=== PATIENT | male | born 1960 | race Caucasian/White ===

== ENCOUNTER 2018-03-27 11:00 | Emergency (ER) | payer BC, OTHER ==
[~2018-03-27] VITALS: Ht 162.6 cm; Wt 65.8 kg
[2018-03-27 11:13] VITALS: Ht 162.6 cm; Wt 65.8 kg
[2018-03-27 12:31] LABS: BASOPHIL % 0.3 % (0-2); PLATELET COUNT 271 x10^3mcL (130-400); RED CELL DISTRIBUTION WIDTH 12.9 % (11.5-14.5)
[2018-03-27 12:43] LABS: CALCIUM 9.1 mg/dL (8.5-10.1); CARBON DIOXIDE 29.5 mmol/L (21-32); CHLORIDE SERUM 102 mmol/L (98-107); CREATININE SERUM 0.9 mg/dL (0.7-1.3); GFR1 > 60 mL/min; GLUCOSE SERUM 260 mg/dL (74-106); POTASSIUM SERUM 4.4 mmol/L (3.5-5.1); SODIUM SERUM 139 mmol/L (136-145)
[2018-03-27 12:56] LABS: ALKALINE PHOSPHATASE 130 U/L (46-116); ALT/SGPT 54 U/L (16-63); AMYLASE 90 U/L (25-115); AST/SGOT 18 U/L (15-37); BILIRUBIN TOTAL 0.29 mg/dL (0.20-1.00); CHOLESTEROL 162 mg/dL (<200); HDL CHOLESTEROL 51 mg/dL (40-60); LIPASE 349 IU/L (73-393); TOTAL PROTEIN, SERUM 8.3 g/dL (6.4-8.2)
[2018-03-27 13:11] LABS: microscopic required? NO
[2018-03-27 13:45] LABS: UA SPECIFIC GRAVITY 1.025 (1.005-1.035); urine erythrocyte NEGATIVE (NEGATIVE)
[2018-03-27 14:36] LABS: AMPHETAMINE QUAL UR NONE DETECTED (See below)
[2018-03-27 16:49] VITALS: BP 130/76
== END 2018-03-27 16:49 | disposition home or self-care (01) ==
LOC: ED 11:00
PROVIDERS: Emergency Medicine
DX: F41.9 Anxiety disorder, unspecified (principal); R06.4 Hyperventilation; E11.65 Type 2 diabetes mellitus with hyperglycemia
CPT/HCPCS: 36600; 82962; J1815; J7030; Q0092

== ENCOUNTER 2018-06-22 11:09 | Emergency (ER) | payer BC, OTHER ==
[~2018-06-22] VITALS: Ht 162.6 cm; Wt 65.8 kg
[2018-06-22 11:15] VITALS: Ht 162.6 cm; Wt 65.8 kg
[2018-06-22 13:12] VITALS: BP 127/71
== END 2018-06-22 13:18 | disposition home or self-care (01) ==
LOC: ED 11:09
DX: M79.632 Pain in left forearm (principal); M79.672 Pain in left foot; R07.89 Other chest pain; E11.9 Type 2 diabetes mellitus without complications; X50.0XXA Overexertion from strenuous movement or load, initial encounter; Y93.89 Activity, other specified; Y92.89 Other specified places as the place of occurrence of the external cause; Y99.8 Other external cause status